=== PATIENT | male | born 1975 | race Hispanic/Latino ===

== ENCOUNTER 2025-01-19 20:35 | Emergency (ER) | payer SELFPAY ==
[~2025-01-19] VITALS: Ht 167.6 cm; Wt 127.0 kg
--- NOTE | 2025-01-19 21:12 | NUR ---
LEFT EAR WAS FLUSED WITH WARM WATER
--- NOTE | 2025-01-19 21:13 | ERN ---
ED Note History of Present Illness Stated Complaint: CAN'T HEAR OUT OF LEFT EAR Chief Complaint: Foreignbody Ear Time Seen by MD: 20:51 Time Seen by Midlevel: 21:00 Dictation: Mr. Niko Beckman is a 49-year-old gentleman with history of hypertension, o besity, and medication noncompliance who presented to the emergency department this evening for evaluation of foreign body in ear. He states that one week ago he was having difficulty hearing from his left ear. He purchased medication to flush left ear wax. He states that there was a large amount of black substance as well as some weight which made him believe that it may be a spider. He states he is concerned there is still foreign body in the ear. He states he has minimal left ear pain. He denies having any discharge or bleeding from the ear. He denies having fever, chills, shortness of breath, cough, chest pain, palpitations, edema, abdominal pain, nausea, vomiting, diarrhea, dysuria, headache, or dizziness. Blood pressure at triage 212/117. He states he has not been taking his medication for blood pressure. Allergies: Coded Allergies: No Known Allergies (Unverified Allergy, Unknown, 01/19/25) Emergency Care [employer]: None Home Meds Active Scripts Losartan Potassium (Losartan Potassium) 25 Mg Tablet, 1 TAB PO DAILY for 30 Days, #30 TAB 0 Refills Prov:ADÁN GALLOWAY NP 01/19/25 Past Medical History Past Medical History: Hypertension Additional Past Medical Hx: NON COMPLIANT WITH MEDICATIONS, obese Surgical History: None PSYCH History: no pertinent psych hx Social History: Negative, Lives with family RN Note Reviewed/Agreed w/PFSH: Yes Review of System Dictation REVIEW OF SYSTEMS: CONSTITUTIONAL: Patient denies fevers, chills, sweats and weight changes. EYES: Patient denies any visual symptoms. EARS, NOSE, AND THROAT: No symptoms of rhinitis or sore throat. He states that a week ago he noted decreased hearing in his left ear so he use an ear wax removal kit. He states he got a large amount of black wax as well as some white substance. He is now concerned that there was a spider in his ear. Pain is minimal. He has had no bleeding or discharge from the ear. CARDIOVASCULAR: Patient denies chest pains, palpitations, orthopnea and paroxysmal nocturnal dyspnea. Reports history of high blood pressure. States he has not been taking his antihypertensive medications. RESPIRATORY: No dyspnea on exertion, no wheezing or cough. GI: No nausea, vomiting, diarrhea, constipation, abdominal pain, hematochezia or melena. : No urinary hesitancy or dribbling. No nocturia or urinary frequency. No abnormal urethral discharge. MUSCULOSKELETAL: No myalgias or arthralgias. NEUROLOGIC: No chronic headaches, no seizures. Patient denies numbness, tingling or weakness. PSYCHIATRIC: Patient denies problems with mood disturbance. No problems with anxiety. ENDOCRINE: No excessive urination or excessive thirst. DERMATOLOGIC: Patient denies any rashes or skin changes. Initial Vital Sign VS Vital Signs Date Time Temp Pulse Resp B/P (MAP) Pulse Ox O2 Delivery O2 Flow Rate FiO2 01/19/25 20:36 98.4 92 20 212/117 98 Room Air 01/19/25 21:19 0 21 Physical Exam Dictation Vital signs: Reviewed. Afebrile Constitutional: No acute distress. Non-toxic appearing. Accompanied by significant other Head/Face: Normocephalic, atraumatic. Eyes: Periorbital areas with no swelling, redness, or edema. Lids and lashes are normal. Conjunctival injection is absent. Sclera anicteric. Pupils equal, round, reactive to light. ENT: Pinnas intact and no signs of trauma or erythema. Ear canals discharge or bleeding. Bilateral TMs visualized easily; clear and non-bulging. Left ear canal with what appears to be a small amount of dark brown/black cerumen. No nasal discharge or bleeding noted. Oropharynx with no exudate, redness, swelling, masses, exudates, or evidence of obstruction. Uvula midline. Mucous membranes moist. Neck: Trachea midline, no masses palpated, and no cervical lymphadenopathy. No swelling. Supple, full range of motion. Chest/Axilla: No tenderness, no crepitus, no paradoxical movement, no retractio ns. Cardiovascular: Regular rate, regular rhythm, no murmur, no gallops. Symmetric pulses. No peripheral edema. BP 212/117. States he has not taken his blood pressure medicine. Respiratory: Respirations even and unlabored. Lung sounds clear; no wheezes, rales or rhonchi. Room air SpO2 99% Gastrointestinal: Largely obese No distention is appreciated. Bowel sounds are normal. No mass or organomegaly . There is no tenderness. No rebound. No rigidity. No voluntary or involuntary guarding. No Smith's sign. Neurological: Normal speech, gross motor function intact, gross sensory function intact. No focal weakness/Paresthesia. Musculoskeletal/Extremities: All extremities have full range of motion, no pain or tenderness on palpation. Symmetric pulses. Integumentary: Intact. Skin is normal color, warm and dry. Cap refill less than 2 seconds. ED Course ED Course Orders Procedure Category Date Status Time Hydrocodone/Apap PHA 01/19/25 Complete 5/325 (Concord 5/325mg) 21:30 Clonidine Hcl 0.2 Mg PHA 01/19/25 Complete Tablet (Catapres 0. 21:30 *Nursing CPOE 01/19/25 Transmitted Communication: 21:13 Current Medications Medications (Trade) Dose Ordered Sig/Donna Route PRN Reason Start Time Stop Time Status Last Admin Dose Admin Acetaminophen/ Hydrocodone Bitart (NORco 5/325MG) 1 tab ONCE ONCE PO 01/19/25 21:30 01/19/25 21:31 DC 01/19/25 21:14 Clonidine HCl (CATApres 0.2 MG TAB) 0.2 mg ONCE ONCE PO 01/19/25 21:30 01/19/25 21:35 DC Vital Signs Date Time Temp Pulse Resp B/P (MAP) Pulse Ox O2 Delivery O2 Flow Rate FiO2 01/19/25 21:47 98.4 76 18 161/85 98 Room Air* 0 21 01/19/25 21:19 76 18 172/97 100 Room Air* 0 21 01/19/25 20:36 98.4 92 20 212/117 98 Room Air Upon arrival to the emergency department noted marked elevation in blood pressure 212/117. Patient states he has not been taking his antihypertensive medication. Repeat reading 172/97. He received dose [place] x1 for discomfort. He had irrigation of the left ear; black he says possible insect removed. TM is visualized well. Minimal erythema to ear canal. Discussed importance of compliance with antihypertensive medication. Prescription given for him to resume his losartan 25 mg daily. Final blood pressure 161/85. Medical Decision Making MDM MDM: Differential diagnosis: Foreign body ear, cerumen impaction, otitis media, otitis externa Rationale: Tests considered and ordered secondary to shared decision making include: Examination Previous outside records reviewed: Old ER visits. Risk of complication and/or morbidity or mortality of patient management: None Medications-Per medication reconciliation Need for hospitalization: Patient does not meet criteria for hospitalization. Need for emergency major/minor surgery: No There are no social concerns with this patient. Prescription drug management: OTC Tylenol or ibuprofen. Losartan. Prescriptions will include symptomatic care Patient's prior external medical records from other ER visits were reviewed by me as indicated. Prior testing and results from previous visits were reviewed. Prior tests were taken into account with medical decision making and resource utilization, independent historian/historians were used to obtain complete medical history. I independently interpreted the test that were performed, results were reviewed by me and considered findings on radiology if ordered. Medical management and examination interpretation discussions were had by me with other qualified healthcare professionals as indicated for the patient's care. DX & DISP Disposition: Discharge Departure Impression: Primary Impression: Hypertension Additional Impressions: Noncompliance, Morbid obesity, Foreign body in left ear Condition: Stable Scripts Ibuprofen (Ibuprofen) 600 Mg Tablet 600 MG PO Q6H PRN for PAIN, #15 TAB 0 Refills Prov: ADÁN GALLOWAY NP 01/19/25 Losartan Potassium (Losartan Potassium) 25 Mg Tablet 1 TAB PO DAILY for 30 Days, #30 TAB 0 Refills Prov: ADÁN GALLOWAY NP 01/19/25 Additional Instructions: Avoid using Q-tips and ear. May take [id number] Tylenol or ibuprofen as needed for discomfort. You will need to take your antihypertensive daily to avoid hypertension and complications. Resume your Losartan 25mg daily. Keep log of your blood pressure and follow up with your primary care physician. Return to the emergency department for any worsening of symptoms or concerns. Referrals: SELF,REFERRAL (PCP) Time of Disposition: 21:55 ADÁN GALLOWAY NP Jan 19, 2025 21:13
[2025-01-19] MEDS: HYDROcodone/APAP 5/325 1 TAB TABLET PO ONE (21:14)
[2025-01-19] MEDS ORDERED: cloNIDine HCL 0.2 MG TABLET PO ONE (21:30)
[2025-01-19] MEDS ORDERED: LOSA25TA41 PO (21:54)
[2025-01-19] MEDS ORDERED: IBUP-2070 PO (22:17)
[2025-01-19 22:22] VITALS: BP 148/80; PULSE 76; RESP 18; TEMP 98.4; O2SAT 98
== END 2025-01-19 22:23 | disposition home or self-care (01) ==
LOC: EDH 20:35
DX: T16.2XXA Foreign body in left ear, initial encounter (principal); I10 Essential (primary) hypertension; E66.01 Morbid (severe) obesity due to excess calories; Z79.899 Other long term (current) drug therapy; Z91.199 Patient's noncompliance with other medical treatment and regimen due to unspecified reason; X58.XXXA Exposure to other specified factors, initial encounter
CPT/HCPCS: 99283